=== PATIENT | female | born 1960 | race Two or more races ===

== ENCOUNTER 2016-12-08 11:20 | Day surgery (SDC) | payer OTHER ==
[~2016-12-08] VITALS: Ht 162.6 cm; Wt 70.2 kg
[2016-12-08] MEDS ORDERED: PROPOFOL 20 ML ONE (13:21)
[2016-12-08 13:25] VITALS: Ht 162.6 cm; Wt 70.2 kg
[2016-12-08] MEDS ORDERED: ATOR20TA38 PO (13:33)
[2016-12-08] MEDS ORDERED: ASPI-664 PO (13:33)
[2016-12-08 14:12] VITALS: BP 125/65; PULSE 67; RESP 19
[2016-12-08 17:35] VITALS: BP 117/75; PULSE 70; RESP 19
--- NOTE | 2016-12-12 20:55 | GILP ---
DATE OF PROCEDURE: 12/08/2016 DATE: 12/08/2016 NAME OF PROCEDURE: Colonoscopy to cecum. SURGEON: Mann Sawyer MD. HISTORY AND INDICATIONS: The patient is here for colorectal cancer screening. PREMEDICATION: Monitored anesthesia care by anesthesiologist. INSTRUMENT USED: Olympus colonoscope. PREPARATION: Adequate. TECHNIQUE: After informed consent, with the patient/relatives understanding the procedure, its indic ations potential risks and complications, including but not limited to: allergic reaction, bleeding, perforation, infection, missed lesions, and after all pertinent questions were answered to the isha ent's satisfaction, the patient/relatives signed the witnessed informed consent. Following this, premedication was administered slowly IV push by under careful cardiovascular and re spiratory monitoring with pulse oximetry, automatic blood pressure and monitoring coordinator. Once the sedati ve effect was achieved, the patient was placed in the left lateral decubitus position, digital recta l examination was performed. The colonoscope was then introduced and advanced under visual control throughout all segments of the colon including: the rectum, sigmoid, descending colon, splenic flexu re, transverse colon, hepatic flexure, ascending colon and finally reaching the cecum which was amauri rly identified by transillumination, finger indentation and the ileocecal valve. Careful examinatio n of the mucosa of the lower gastrointestinal tract both on insertion as well as withdrawal of the i nstrument disclosed the following findings: Rectal Examination: No evidence of perirectal disease, no masses. Colonic Mucosa: The colonic mucosa unremarkable throughout. The ileocecal valve was clearly identi fied and appears unremarkable. The appendiceal orifice was also identified and appears unremarkable . The instrument was withdrawn reexamining the mucosa in detail. No additional abnormalities are n oted with exception of moderate sized internal hemorrhoids. The instrument was then withdrawn, the patient tolerated the procedure well and was transferred out of the Endoscopy Suite awake and in good condition to continue recovery under observation. IMPRESSION: 1. Normal colonic mucosa to cecum. 2. Moderate size internal hemorrhoids. PLAN: The patient will need follow up as an outpatient. Annual Hemoccult stool testing is recommen ded and colonoscopy in 10 years is recommended as well. Dictated By: MANN SAWYER MS/MAHIN Conf#: [id number] DID#: [id number] CC: MANN SAWYER;*EndCC*
== END 2016-12-08 18:00 | disposition home or self-care (01) ==
LOC: GIL 11:20
PROVIDERS: ATTEND Internal Medicine Gastroenterology
DX: Z12.11 Encounter for screening for malignant neoplasm of colon (principal); K64.8 Other hemorrhoids; E78.5 Hyperlipidemia, unspecified
CPT/HCPCS: 45378; Z7610